=== PATIENT | male | born 1955 | race Caucasian/White ===

== ENCOUNTER 2020-01-15 08:00 | Outpatient (CLI) | payer OTHER ==
[2020-01-15 13:11] LABS: BASOPHILS # (AUTO) 0.1 10^3/uL (0.0-0.1); BASOPHILS % (AUTO) 0.8 %; EOSINOPHILS # (AUTO) 0.3 10^3/uL (0.0-0.7); EOSINOPHILS % (AUTO) 3.3 %; HGB - HEMOGLOBIN 15.5 g/dL (14.0-18.0); LYMPHOCYTES # (AUTO) 1.7 10^3/uL (1.5-3.5); LYMPHOCYTES % (AUTO) 21.7 %; MEAN CORPUSCULAR HEMOGLOBIN 33.9 pg (27.0-31.0); MEAN CORPUSCULAR HGB CONC 33.3 g/dL (32.0-36.0); MEAN CORPUSCULAR VOLUME 101.8 fL (80.0-94.0); MEAN PLATELET VOLUME 10.7 fL (7.4-11.4); MONOCYTES # (AUTO) 0.7 10^3/uL (0.0-1.0); MONOCYTES % (AUTO) 8.4 %; NEUTROPHILS # (AUTO) 5.2 10^3/uL (1.5-6.6); NEUTROPHILS % (AUTO) 65.5 %; PLT - PLATELET COUNT 224 10^3/uL (130-450); RED BLOOD COUNT 4.57 10^6/uL (4.70-6.10); RED CELL DISTRIBUTION WIDTH 13.2 % (12.0-15.0); WHITE BLOOD COUNT 7.9 x10^3/uL (4.8-10.8)
[2020-01-15 13:49] LABS: ALBUMIN/GLOBULIN RATIO 1.2 (1.0-2.2); ALKALINE PHOSPHATASE 73 IU/L (42-121); ALT ALANINE AMINOTRANSFERASE 31 IU/L (10-60); AST ASPARTATE AMINOTRANSFERASE 25 IU/L (10-42); BILIRUBIN,TOTAL 1.1 mg/dL (0.2-1.0); BUN - BLOOD UREA NITROGEN 14 mg/dL (6-20); CALCIUM 9.2 mg/dL (8.5-10.3); CARBON DIOXIDE - CO2 28 mmol/L (21-32); CHLORIDE 102 mmol/L (101-111); CHOLESTEROL 152 mg/dL; CREATININE 1.1 mg/dL (0.6-1.2); GLUCOSE 105 mg/dL (70-100); HDL CHOLESTEROL 76 mg/dL; LDL CHOLESTEROL,CALCULATED 67 mg/dL; LDL/HDL RATIO 0.9 (<3.6); SODIUM 137 mmol/L (135-145); TOTAL PROTEIN 7.4 g/dL (6.7-8.2); VLDL CHOLESTEROL 9 mg/dL
== END 2020-01-15 23:59 | disposition home or self-care (01) ==
LOC: LAB.WCP 08:00
PROVIDERS: ATTEND Family Medicine
DX: I73.9 Peripheral vascular disease, unspecified (principal); G45.9 Transient cerebral ischemic attack, unspecified; I10 Essential (primary) hypertension; Z12.5 Encounter for screening for malignant neoplasm of prostate
CPT/HCPCS: 36415; 80053; 80061; 83721; 84153; 84443; 85025

== ENCOUNTER 2021-03-23 07:53 | Outpatient (CLI) | payer MEDICARE, OTHER ==
[2021-03-23 12:04] LABS: BASOPHILS # (AUTO) 0.1 10^3/uL (0.0-0.1); BASOPHILS % (AUTO) 0.6 %; EOSINOPHILS # (AUTO) 0.2 10^3/uL (0.0-0.7); EOSINOPHILS % (AUTO) 2.4 %; HCT - HEMATOCRIT 47.2 % (42.0-52.0); LYMPHOCYTES # (AUTO) 1.6 10^3/uL (1.5-3.5); MEAN CORPUSCULAR HEMOGLOBIN 34.1 pg (27.0-31.0); MEAN CORPUSCULAR HGB CONC 33.9 g/dL (32.0-36.0); MEAN CORPUSCULAR VOLUME 100.6 fL (80.0-94.0); MEAN PLATELET VOLUME 10.6 fL (7.4-11.4); MONOCYTES # (AUTO) 0.7 10^3/uL (0.0-1.0); NEUTROPHILS # (AUTO) 6.8 10^3/uL (1.5-6.6); NEUTROPHILS % (AUTO) 72.7 %; PLT - PLATELET COUNT 288 10^3/uL (130-450); RED BLOOD COUNT 4.69 10^6/uL (4.70-6.10); RED CELL DISTRIBUTION WIDTH 11.9 % (12.0-15.0); WHITE BLOOD COUNT 9.4 x10^3/uL (4.8-10.8)
[2021-03-23 12:16] LABS: ALBUMIN 4.1 g/dL (3.2-5.5); ALBUMIN/GLOBULIN RATIO 1.2 (1.0-2.2); ALKALINE PHOSPHATASE 80 IU/L (42-121); ALT ALANINE AMINOTRANSFERASE 49 IU/L (10-60); AST ASPARTATE AMINOTRANSFERASE 42 IU/L (10-42); BILIRUBIN,TOTAL 0.7 mg/dL (0.2-1.0); BUN - BLOOD UREA NITROGEN 23 mg/dL (6-20); CALCIUM 9.2 mg/dL (8.5-10.3); CARBON DIOXIDE - CO2 24 mmol/L (21-32); CHLORIDE 102 mmol/L (101-111); CHOL/HDL RATIO 2.2 (<5.0); CHOLESTEROL 165 mg/dL; GFR - MDRD 75 (>89); GLUCOSE 102 mg/dL (70-100); HDL CHOLESTEROL 76 mg/dL; LDL CHOLESTEROL,CALCULATED 66 mg/dL; LDL/HDL RATIO 0.9 (<3.6); SODIUM 137 mmol/L (135-145); TOTAL PROTEIN 7.4 g/dL (6.7-8.2); TRIGLYCERIDES 115 mg/dL; URIC ACID 6.2 mg/dL (2.6-7.2); VLDL CHOLESTEROL 23 mg/dL
== END 2021-03-23 07:54 | disposition home or self-care (01) ==
LOC: LAB.N 07:53
PROVIDERS: ATTEND Family Medicine
DX: I10 Essential (primary) hypertension (principal); R39.11 Hesitancy of micturition; Z12.5 Encounter for screening for malignant neoplasm of prostate; M10.9 Gout, unspecified
CPT/HCPCS: 36415; 80053; 80061; 81001; 83721; 84153; 84550; 85025; 87086

== ENCOUNTER 2021-03-23 08:12 | Outpatient (CLI) | payer MEDICARE, OTHER ==
--- NOTE | 2021-03-23 11:00 | XRAY Report ---
PROCEDURE: Shoulder 3 View RT INDICATIONS: R SHOULDER PX TECHNIQUE: 3 views of the shoulder were acquired. COMPARISON: None. FINDINGS: Bones: No fractures or dislocations. No suspicious bony lesions. Visualized ribs appear intact. Moderate acromioclavicular joint and glenohumeral joint osteoarthritic changes are seen. Soft tissues: Small calcifications are noted adjacent to greater tuberosity of humeral head which may indicate calcific tendinitis. IMPRESSION: No shoulder fracture or dislocation. Moderate acromioclavicular joint and glenohumeral j oint osteoarthritis. Suggestion of calcific tendinitis involving distal supraspinatus. Reviewed by: Kristofer Chung MD on 03/23/2021 10:59 AM PDT Approved by: Kristofer Chung MD on 03/23/2021 10:59 AM PDT Station ID: [id number]
== END 2021-03-23 08:13 | disposition home or self-care (01) ==
LOC: DI.N 08:12
PROVIDERS: ATTEND Family Medicine
DX: M19.011 Primary osteoarthritis, right shoulder (principal); I10 Essential (primary) hypertension; R39.11 Hesitancy of micturition; Z12.5 Encounter for screening for malignant neoplasm of prostate; M10.9 Gout, unspecified
CPT/HCPCS: 36415; 73030; 80053; 80061; 84550; 85025; G0103; 81001; 83721; 84153; 87086

== ENCOUNTER 2021-03-24 14:30 | Outpatient (CLI) | payer MEDICARE, OTHER ==
[2021-03-24 17:59] LABS: BILIRUBIN,URINE NEGATIVE (NEGATIVE); GLUCOSE, URINE (UA) NEGATIVE (NEGATIVE); KETONES,URINE (UA) NEGATIVE (NEGATIVE); LEUKOCYTE ESTERASE, URINE NEGATIVE (NEGATIVE); NITRITE,URINE NEGATIVE (NEGATIVE); OCCULT BLOOD,URINE NEGATIVE (NEGATIVE); PH,URINE 6.5 PH (5.0-7.5); PROTEIN,URINE NEGATIVE (NEGATIVE); UROBILINOGEN,URINE 0.2 (NORMAL) E.U./dL (NORMAL)
[2021-03-24 18:04] LABS: CLARITY,URINE CLEAR (CLEAR)
[2021-03-24 20:02] LABS: BACTERIA,URINE None Seen /HPF (None Seen); RBC,URINE None Seen /HPF (0-5); SQUAMOUS EPITHELIAL CELL,UR NONE SEEN (<= Few); WBC,URINE 0-3 /HPF (0-3)
== END 2021-03-24 23:59 | disposition home or self-care (01) ==
LOC: LAB.R 14:30
PROVIDERS: ATTEND Family Medicine
DX: R39.11 Hesitancy of micturition (principal)
CPT/HCPCS: 81001; 87086

== ENCOUNTER 2021-05-17 14:28 | Outpatient (CLI) | payer MEDICARE, OTHER ==
--- NOTE | 2021-05-17 17:35 | XRAY Report ---
PROCEDURE: Shoulder 3 View BILAT INDICATIONS: BILATERAL SHOULDER PX TECHNIQUE: 7 views of the shoulder were acquired. COMPARISON: Right shoulder radiographs dated 03/23/2021. FINDINGS: On the right, scattered degenerative spurring and sclerosis.Severe before meals and glenohumeral join t degeneration. Calcific tendinitis noted, and possible sub-5 mm loose bodies. On the left, scattered degenerative spurring and sclerosis. Severe before meals and moderate glenohum eral joint degeneration. Calcific tendinitis is noted. IMPRESSION: Severe bilateral shoulder joint degeneration as above, although right greater than left. No interval change on the right since 03/23/2021 Reviewed by: Manolo Gutierrez MD on 05/17/2021 5:33 PM PDT Approved by: Manolo Gutierrez MD on 05/17/2021 5:33 PM PDT Station ID: [id number]
== END 2021-05-17 14:30 ==
LOC: DI.N 14:28
PROVIDERS: ATTEND Physician Assistant
DX: M19.012 Primary osteoarthritis, left shoulder (principal); M19.011 Primary osteoarthritis, right shoulder

== ENCOUNTER 2022-11-07 06:58 | Day surgery (SDC) | payer MEDICARE ==
--- NOTE | 2022-11-07 06:52 | ANESTHESIA ---
Pre-Anesthesia VS, & Labs - Diagnosis hx colon polyps, positive FIT test - Procedure colonoscopy Height: 5 ft 9 in - NPO >8 hours - Lab Results Lab results reviewed: Yes Home Medications and Allergies Home Medications: Ambulatory Orders Atorvastatin [Lipitor] 1 tab PO DAILY 11/06/22 Finasteride [Proscar] 1 tab PO DAILY 11/06/22 hydroCHLOROthiazide [Hydrodiuril] 1 tab PO DAILY 11/06/22 Felodipine [Felodipine ER] 1 tab PO DAILY 02/22/15 Losartan [Cozaar] 1 tab PO DAILY 02/22/15 Atorvastatin [Lipitor] 1 tab PO DAILY 11/06/22 Finasteride [Proscar] 1 tab PO DAILY 11/06/22 hydroCHLOROthiazide [Hydrodiuril] 1 tab PO DAILY 11/06/22 Allergies/Adverse Reactions: Allergies Allergy/AdvReac Type Severity Reaction Status Date / Time codeine Allergy Rash Verified 11/06/22 12:33 [email or web address] [From Chantix] AdvReac Unknown Verified 11/07/22 07:20 Anes History & Medical History - Anesthetic History Anesthesia Complications: reports: No previous complications Family history of Anesthesia Complications: Denies - Medical History Cardiovascular: reports: Hypertension Pulmonary: reports: COPD Gastrointestinal: reports: None Urinary: reports: Benign prostate hypertrophy Musculoskeletal: reports: Gout Endocrine/Autoimmune: reports: None Skin: reports: None Smoking Status: Current every day smoker - Surgical History Cardiothoracic: reports: Vascular surgery, Other Orthopedic: reports: Rotator cuff repair, Other Exam General: Alert, Oriented x3, Cooperative Dental: WNL Mouth Openin Fingerbreadth Mallampati classification: II Thyromental Distance: 4-6 cm Respiratory: Lungs clear, Normal breath sounds, No respiratory distress Cardiovascular: Regular rate Mental/Cognitive Status: Alert/Oriented X3, Normal for patient Cognitive Status: Within normal limits Plan Anesthesia Type: Total IV Consent for Procedure(s) Verified and Reviewed: Yes Code Status: Attempt Resuscitation ASA classification: 2-Mild systemic disease Is this case an emergency?: No
[2022-11-07] MEDS ORDERED: PROPOFOL 500 MG/50 ML 500 MG/50 ML VIAL ONE (07:08)
[2022-11-07] MEDS ORDERED: MIDAZOLAM 2 MG/2 ML VIAL ONE (07:20)
[2022-11-07] MEDS ORDERED: LACTATED RINGERS 1,000 ML IV ONE ×2 (07:29→09:08)
[2022-11-07 09:29] VITALS: BP 109/65
--- NOTE | 2022-11-07 10:44 | ANESTHESIA POST OP EVALUATION ---
Anesthesia Post Eval - Post Anesthesia Eval Vitals: Last Vital Signs Temp 36.6 C 11/07/22 09:08 Pulse 82 11/07/22 09:29 Resp 21 11/07/22 09:29 BP 109/65 11/07/22 09:29 Pulse Ox 98 11/07/22 09:29 O2 Flow Rate CV Function Including HR & BP: Stable Pain Control: Satisfactory Nausea & Vomiting: Negative Mental Status: Baseline Respiratory Status: Airway Patent Hydration Status: Satisfactory Anesthesia Complications: None
== END 2022-11-07 06:59 | disposition home or self-care (01) ==
LOC: SDS 06:58
PROVIDERS: ATTEND Surgery
PROC: 0DBN8ZZ Excision of Sigmoid Colon, Via Natural or Artificial Opening Endoscopic (ICD-10-PCS; 2022-11-07)
PROC: 0DBP8ZZ Excision of Rectum, Via Natural or Artificial Opening Endoscopic (ICD-10-PCS; 2022-11-07)
PROC: 0DBM8ZZ Excision of Descending Colon, Via Natural or Artificial Opening Endoscopic (ICD-10-PCS; principal; 2022-11-07 08:15)
DX: R19.5 Other fecal abnormalities (principal); D12.8 Benign neoplasm of rectum; D12.5 Benign neoplasm of sigmoid colon; D12.4 Benign neoplasm of descending colon; J44.9 Chronic obstructive pulmonary disease, unspecified; F17.210 Nicotine dependence, cigarettes, uncomplicated; K57.30 Diverticulosis of large intestine without perforation or abscess without bleeding
CPT/HCPCS: 45380; 45385; J7120

== ENCOUNTER 2023-03-05 16:09 | Outpatient (CLI) | payer MEDICARE ==
--- NOTE | 2023-03-06 17:28 | Ultrasound Report ---
PROCEDURE: Duplex Ext Veins Bilateral INDICATIONS: KEVAN Rosario TECHNIQUE: Real-time imaging, as well as color and pulse Doppler interrogation, were performed of the deep veins of both legs from the inguinal ligament to the popliteal fossa. COMPARISON: None. FINDINGS: The deep veins are normally compressible, and free of intraluminal thrombus. Color and pu lse Doppler demonstrate normal phasic intravascular flow. There is normal augmentation response to d istal compression maneuver. IMPRESSION: No deep vein thrombosis of the bilateral lower extremities. Reviewed by: Ruth Means MD on 03/06/2023 5:27 PM PDT Approved by: Ruth Means MD on 03/06/2023 5:27 PM PDT Station ID: [id number]
--- NOTE | 2023-03-06 17:31 | Ultrasound Report ---
PROCEDURE: Duplex Lwr Ext Arterial Bilat INDICATIONS: LEG EDEMA TECHNIQUE: Color and pulse Doppler interrogation was performed of both lower extremity arterial systems, with im age documentation. COMPARISON: None FINDINGS: Right lower extremity: Common femoral artery: 93.7 cm/sec, with triphasic flow. Deep femoral artery: 62.6 cm/sec, with triphasic flow. Proximal superficial femoral artery: 99.6 cm/sec, with triphasic flow. Mid superficial femoral artery: 94.8 cm/sec, with triphasic flow. Distal superficial femoral artery: 105.1 cm/sec, with triphasic flow. Popliteal artery: 54.7 cm/sec, with triphasic flow. Posterior tibial artery: 96.5 cm/sec, with triphasic flow. Anterior tibial artery/dorsalis pedis: 69.6 cm/sec, with triphasic/biphasic flow. Blackburn-scale imaging description: Mild atheromatous plaque. No focal hemodynamically significant steno sis. Left lower extremity: Common femoral artery: 115 cm/sec, with triphasic flow. Deep femoral artery: 97.7 cm/sec, with biphasic/triphasic flow. Proximal superficial femoral artery: 104.7 cm/sec, with triphasic flow. Mid superficial femoral artery: 97.7 cm/sec, with triphasic flow. Distal superficial femoral artery: 84.2 cm/sec, with triphasic flow. Popliteal artery: 70.1 cm/sec, with triphasic flow. Posterior tibial artery: 106.5 cm/sec, with triphasic flow. Anterior tibial artery/dorsalis pedis: 62.1 cm/sec, with triphasic flow. Blackburn-scale imaging description: Mild atheromatous plaque. No focal hemodynamically significant steno sis. IMPRESSION: No focal hemodynamically significant stenosis of the bilateral lower extremity arteries. Reviewed by: Ruth Means MD on 03/06/2023 5:29 PM PDT Approved by: Ruth Means MD on 03/06/2023 5:29 PM PDT Station ID: [id number]
== END 2023-03-05 16:10 | disposition home or self-care (01) ==
LOC: DI 16:09
PROVIDERS: ATTEND Physician Assistant
DX: R60.0 Localized edema (principal)
CPT/HCPCS: 93925; 93970

== ENCOUNTER 2023-03-05 16:11 | Outpatient (CLI) | payer MEDICARE ==
[2023-03-05 18:05] LABS: BASOPHILS # (AUTO) 0.1 10^3/uL (0.0-0.1); BASOPHILS % (AUTO) 0.7 %; EOSINOPHILS # (AUTO) 0.3 10^3/uL (0.0-0.7); EOSINOPHILS % (AUTO) 3.3 %; HCT - HEMATOCRIT 46.6 % (42.0-52.0); HGB - HEMOGLOBIN 15.8 g/dL (14.0-18.0); LYMPHOCYTES % (AUTO) 20.9 %; MEAN CORPUSCULAR HGB CONC 33.9 g/dL (32.0-36.0); MEAN CORPUSCULAR VOLUME 97.3 fL (80.0-94.0); MEAN PLATELET VOLUME 9.8 fL (7.4-11.4); MONOCYTES # (AUTO) 0.8 10^3/uL (0.0-1.0); MONOCYTES % (AUTO) 8.7 %; NEUTROPHILS # (AUTO) 6.4 10^3/uL (1.5-6.6); NEUTROPHILS % (AUTO) 66.1 %; PLT - PLATELET COUNT 256 10^3/uL (130-450); RED BLOOD COUNT 4.79 10^6/uL (4.70-6.10); RED CELL DISTRIBUTION WIDTH 12.3 % (12.0-15.0); WHITE BLOOD COUNT 9.7 x10^3/uL (4.8-10.8)
[2023-03-05 18:17] LABS: ALBUMIN 4.1 g/dL (3.2-5.5); ALBUMIN/GLOBULIN RATIO 1.1 (1.0-2.2); ALKALINE PHOSPHATASE 81 IU/L (42-121); ALT ALANINE AMINOTRANSFERASE 36 IU/L (10-60); AST ASPARTATE AMINOTRANSFERASE 27 IU/L (10-42); BILIRUBIN,TOTAL 0.6 mg/dL (0.2-1.0); BUN - BLOOD UREA NITROGEN 14 mg/dL (6-20); CALCIUM 9.6 mg/dL (8.5-10.3); CARBON DIOXIDE - CO2 29 mmol/L (21-32); CHLORIDE 102 mmol/L (101-111); CHOL/HDL RATIO 2.5 (<5.0); CHOLESTEROL 141 mg/dL; CREATININE 1.3 mg/dL (0.6-1.2); GFR - MDRD 55 (>89); GLUCOSE 102 mg/dL (70-100); HDL CHOLESTEROL 57 mg/dL; LDL CHOLESTEROL,CALCULATED 64 mg/dL; LDL/HDL RATIO 1.1 (<3.6); POTASSIUM 3.7 mmol/L (3.5-5.0); SODIUM 138 mmol/L (135-145); TOTAL PROTEIN 7.7 g/dL (6.7-8.2); TRIGLYCERIDES 98 mg/dL; VLDL CHOLESTEROL 20 mg/dL
[2023-03-05 18:29] LABS: THYROID STIMULATING HORMONE 2.23 uIU/mL (0.34-5.60)
--- NOTE | 2023-03-06 10:45 | XRAY Report ---
PROCEDURE: Chest 2 View X-Ray INDICATIONS: WHEEZING TECHNIQUE: 2 views of the chest were acquired. COMPARISON: None. FINDINGS: Surgical changes and devices: None. Lungs and pleura: No pleural effusions or pneumothorax. Lungs are clear. Mediastinum: Mediastinal contours appear normal. Heart size is normal. Bones and chest wall: No suspicious bony lesions. Overlying soft tissues appear unremarkable. IMPRESSION: No acute cardiopulmonary process. Reviewed by: Killian Peraza MD on 03/06/2023 10:44 AM PDT Approved by: Killian Peraza MD on 03/06/2023 10:44 AM PDT Station ID: [id number]
== END 2023-03-05 16:12 | disposition home or self-care (01) ==
LOC: DI 16:11
PROVIDERS: ATTEND Physician Assistant
DX: R06.2 Wheezing (principal); R60.0 Localized edema; Z12.5 Encounter for screening for malignant neoplasm of prostate; I10 Essential (primary) hypertension
CPT/HCPCS: 36415; 71046; 80053; 80061; 84443; 85025; 93925; 93970; G0103; 83721; 84153

== ENCOUNTER 2023-08-29 08:35 | Outpatient (CLI) | payer MEDICARE ==
[2023-08-29 12:30] LABS: CALCIUM 9.9 mg/dL (8.5-10.3); CREATININE 1.1 mg/dL (0.6-1.3); POTASSIUM 3.6 mmol/L (3.5-4.5)
== END 2023-08-29 08:36 | disposition home or self-care (01) ==
LOC: LAB.N 08:35
PROVIDERS: ATTEND Physician Assistant
DX: R94.4 Abnormal results of kidney function studies (principal)
CPT/HCPCS: 36415; 80048

== ENCOUNTER 2024-05-30 07:08 | Outpatient (CLI) | payer MEDICARE ==
[2024-05-30 12:41] LABS: BASOPHILS # (AUTO) 0.1 10^3/uL (0.0-0.1); EOSINOPHILS # (AUTO) 0.3 10^3/uL (0.0-0.7); HGB - HEMOGLOBIN 15.7 g/dL (14.0-18.0); LYMPHOCYTES # (AUTO) 1.6 10^3/uL (1.5-3.5); LYMPHOCYTES % (AUTO) 23.8 %; MEAN CORPUSCULAR HEMOGLOBIN 33.4 pg (27.0-31.0); MEAN CORPUSCULAR HGB CONC 33.4 g/dL (32.0-36.0); MEAN PLATELET VOLUME 10.4 fL (7.4-11.4); MONOCYTES # (AUTO) 0.7 10^3/uL (0.0-1.0); MONOCYTES % (AUTO) 10.8 %; PLT - PLATELET COUNT 270 10^3/uL (130-450); RED CELL DISTRIBUTION WIDTH 13.1 % (12.0-15.0); WHITE BLOOD COUNT 6.9 x10^3/uL (4.8-10.8)
[2024-05-30 12:59] LABS: ALBUMIN/GLOBULIN RATIO 1.5 (1.0-2.2); ALKALINE PHOSPHATASE 89 IU/L (42-121); ALT ALANINE AMINOTRANSFERASE 26 IU/L (10-60); AST ASPARTATE AMINOTRANSFERASE 25 IU/L (10-42); BILIRUBIN,TOTAL 0.7 mg/dL (0.2-1.0); BUN - BLOOD UREA NITROGEN 10 mg/dL (6-20); CALCIUM 9.6 mg/dL (8.5-10.3); CARBON DIOXIDE - CO2 30 mmol/L (21-32); CHLORIDE 104 mmol/L (101-111); CHOL/HDL RATIO 2.6 (<5.0); CHOLESTEROL 142 mg/dL; CREATININE 1.2 mg/dL (0.6-1.3); GFR - MDRD 60 (>89); GLUCOSE 94 mg/dL (74-104); HDL CHOLESTEROL 54 mg/dL; LDL CHOLESTEROL,CALCULATED 67 mg/dL; LDL/HDL RATIO 1.2 (<3.6); SODIUM 139 mmol/L (135-145); TOTAL PROTEIN 6.7 g/dL (6.4-8.9); TRIGLYCERIDES 107 mg/dL; VLDL CHOLESTEROL 21 mg/dL
[2024-05-30 13:09] LABS: THYROID STIMULATING HORMONE 1.85 uIU/mL (0.34-5.60)
== END 2024-05-30 07:09 | disposition home or self-care (01) ==
LOC: LAB.N 07:08
PROVIDERS: ATTEND Physician Assistant
DX: I10 Essential (primary) hypertension (principal); G45.9 Transient cerebral ischemic attack, unspecified; Z13.220 Encounter for screening for lipoid disorders; Z12.5 Encounter for screening for malignant neoplasm of prostate; Z13.29 Encounter for screening for other suspected endocrine disorder
CPT/HCPCS: 36415; 80053; 80061; 84443; 85025; G0103; 83721; 84153